=== PATIENT | female | born 1995 | race Asian ===

== ENCOUNTER 2018-09-24 08:53 | Emergency (ER) | payer OTHER ==
[~2018-09-24] VITALS: Ht 162.6 cm; Wt 84.5 kg
[2018-09-24 09:06] VITALS: BP 168/83; PULSE 74; RESP 18; Ht 162.6 cm; Wt 84.5 kg
[2018-09-24] MEDS ORDERED: DEXAMETHASONE 10 MG/ML 1 ML INJ IM ONE (09:30)
[2018-09-24] MEDS ORDERED: CEPH-443 PO (10:00)
[2018-09-24] MEDS ORDERED: HC30CR25 TOP (10:00)
[2018-09-24] MEDS ORDERED: SULF1TAB31 PO (10:00)
--- NOTE | 2018-09-24 13:43 | ERD ---
ER Documentation Chief Complaint Chief Complaint itchy rash on lt thigh and lt ankle x 2 weeks HPI History of Present Illness: 23-year-old female with no past medical history coming in today with complaint of acute rash noted to her left thigh and left ankle has been present for approximately 2 weeks. Patient reports traveling in [place] approximately on September 10, 2018 in which a coal reef scratch her leg in the same area where she is having itching today. Patient reports 3 days AGO that she has noted small red bumps to the area and that has started with increased itching. It patient is also reporting a painful mass underneath her left underarm. Patient denies any other associated symptoms. At home pharmacological/nonpharmacological treatment for symptoms: Denies social concerns; Denies recent foreign travel ROS All systems reviewed and are negative except as per history of present illness. Medications Home Meds Active Scripts Hydrocortisone* Topical (Hydrocortisone* Topical) 2.5%-28.3 Gm Cream..g., 1 APPLIC TOP BID for RASH for 7 Days, #1 TUB Prov:KATHY SOTELO NP 09/24/18 Sulfamethoxazole/Trimethoprim* (Bactrim Ds* Tablet) 1 Each Tablet, 1 TAB PO BID for UNDERARM ABSCESS INFECTION for 7 Days, #14 TAB Prov:KATHY SOTELO NP 09/24/18 Cephalexin* (Keflex*) 500 Mg Capsule, 500 MG PO QID for UNDERARM ABSCESS INFECTION for 7 Days, CAP Prov:KATHY SOTELO NP 09/24/18 Allergies Allergies: Coded Allergies: No Known Allergy (Unverified , 09/24/18) PMhx/Soc Medical and Surgical Hx: pt denies Medical Hx, pt denies Surgical Hx Hx Alcohol Use: No Hx Substance Use: No Hx Tobacco Use: No Smoking Status: Never smoker FmHx Family History: diabetes; No coronary disease Physical Exam Vitals Vital Signs Date Temp Pulse Resp B/P (MAP) Pulse Ox O2 O2 Flow FiO2 Time Delivery Rate 09/24/18 98.2 74 18 168/83 97 09:06 (111) Physical Exam Const: No acute distress Head: Atraumatic Eyes: Normal Conjunctiva ENT: Normal External Ears, Nose and Mouth. Neck: Full range of motion. No meningismus. Resp: Clear to auscultation bilaterally Cardio: Regular rate and rhythm, no murmurs Abd: Soft, non tender, non distended. Normal bowel sounds Skin: No petechiae. 1 cm area of maculopapular noted to left lateral ankle and left lateral thigh consistent with contact dermatitis. It appears sandpaperlike with red papules, no vesicles, no warmth, blanchable. Patient with 2 x 2 centimeter of induration underneath the left armpit, no fluctuance, mild purulent noted mild tenderness, no grimacing, . Back: No midline or flank tenderness Ext: No cyanosis, or edema Neur: Awake and alert Psych: Normal Mood and Affect Results 24 hrs Current Medications Medications Dose Sig/Neeraj Start Time Status Last (Trade) Ordered Route PRN Stop Time Admin Dose Reason Admin 10 mg ONCE ONCE 09/24/18 DC 09/24/18 Dexamethasone IM 09: 09:41 (Decadron) 09/24/18 09:35 Procedures/MDM ED course includes a thorough examination and history. Medications: Ketorolac, dexamethasone Imaging: -- Labs: Urine Low suspicion for life-threatening medical emergency. Low suspicion for infectious emergency requires hospitalization, immediate history of intervention, IV/IM antibiotics. Otherwise healthy patient presenting with constellation of symptoms likely representing abscess without incision and drainage/contact dermatitis as characterized by history, physical exam findings, lab findings. Urine negative. No respiratory distress, otherwise relatively well appearing and nontoxic. Patient verbalizes him to need instructions to stop hydrocortisone cream in the event that rash worsened or becomes more itchy, may be a fungal etiology to it as well. Patient verbalized understanding of follow-up to ensure the abscesses is healing with p.o. antibiotics and to ensure that no incision and drainage is needed. Patient educated on diagnoses, prescriptions, follow-up care, return precautions. Strict return precautions given for worsening condition; questions answered discharge. Disposition for discharge with followup in 2 days with PCP/clinic. Departure Diagnosis: Primary Impression: Abscess Additional Impression: Contact dermatitis Contact dermatitis type: unspecified Contact dermatitis trigger: unspecified trigger Qualified Codes: L25.9 - Unspecified contact dermatitis , unspecified cause Condition: Stable Patient Instructions: Abscess, Antiobiotic Treatment Only, Contact Dermatitis Referrals: [facility] (PCP) [facility] YOU HAVE RECEIVED A MEDICAL SCREENING EXAM AND THE RESULTS INDICATE THAT YOU DO NOT HAVE A CONDITION THAT REQUIRES URGENT TREATMENT IN THE EMERGENCY DEPARTMENT. FURTHER EVALUATION AND TREATMENT OF YOUR CONDITION CAN WAIT UNTIL YOU ARE SEEN IN YOUR DOCTORS OFFICE WITHIN THE NEXT 1-2 DAYS. IT IS YOUR RESPONSIBILITY TO MAKE AN APPOINTMENT FOR FOLOW-UP CARE. IF YOU HAVE A PRIMARY DOCTOR --you should call your primary doctor and schedule an appointment IF YOU DO NOT HAVE A PRIMARY DOCTOR YOU CAN CALL OUR PHYSICIAN REFERRAL HOTLINE AT IF YOU CAN NOT AFFORD TO SEE A PHYSICIAN YOU CAN CHOSE FROM THE FOLLOWING [facility] [address] [facility] [address] [place] [address] [facility] [address] [facility] [address] [facility]. [facility] [address] [facility] [facility] YOU HAVE RECEIVED A MEDICAL SCREENING EXAM AND THE RESULTS INDICATE THAT YOU DO NOT HAVE A CONDITION THAT REQUIRES URGENT TREATMENT IN THE EMERGENCY DEPARTMENT. FURTHER EVALUATION AND TREATMENT OF YOUR CONDITION CAN WAIT UNTIL YOU ARE SEEN IN YOUR DOCTORS OFFICE WITHIN THE NEXT 1-2 DAYS. IT IS YOUR RESPONSIBILITY TO MAKE AN APPOINTMENT FOR FOLOW-UP CARE. IF YOU HAVE A PRIMARY DOCTOR --you should call your primary doctor and schedule and appointment IF YOU DO NOT HAVE A PRIMARY DOCTOR YOU CAN CALL OUR PHYSICIAN REFERRAL HOTLINE AT . IF YOU CAN NOT AFFORD TO SEE A PHYSICIAN YOU CAN CHOSE FROM THE FOLLOWING [facility] INSTITUTIONS: [facility] [address] [place] [address] [facility] [address] [place] [address] [facility] [address] [place] [address] Additional Instructions: Thank you very much for allowing us to participate in your care. Your health and safety is our top priority at [facility]. It is important to read all discharge instructions and education provided in your discharge packet. *You will need a recheck of the abscess to your underarm in the next 3 to 4 days to ensure that the antibiotics are treating it appropriately. If the abscess worsens and you have more pain, return to the emergency department; you may need possible incision and drainage.* *If the steroid cream worsens your rash; discontinue use and seek reevaluation with your primary care doctor/clinic.* Call your primary care doctor TOMORROW for an appointment during the next 2-4 days and bring all the information and medications prescribed. Have prescriptions filled and follow precisely the directions on the label. -Cephalexin and Batrim are antibiotic; take this medication as listed on your prescription. You must complete the entire course of treatment that is listed on your prescription this is very important because it takes a certain number of days to kill the bacteria that is causing the infection of abscess. If the symptoms get worse and your provider is unavailable, return to the Emergency Department immediately. KATHY SOTELO NP Sep 24, 2018 13:43
== END 2018-09-24 10:20 | disposition home or self-care (01) ==
LOC: FTE 08:53
DX: L02.414 Cutaneous abscess of left upper limb (principal); L25.9 Unspecified contact dermatitis, unspecified cause
CPT/HCPCS: 96372; J1100